=== PATIENT | male | born 1965 | race Caucasian/White ===

== ENCOUNTER 2019-11-01 13:36 | Emergency (ER) | payer BC ==
[2019-11-01] MEDS ORDERED: Diphtheria,Pertussis(Acell),Tetanus Vaccine 0.5 ML Syringe IM ONE (14:46)
[2019-11-01] MEDS ORDERED: Lidocaine 1% with EPINEPHrine 1:100,000 20 ML MDV INJECT ONE (14:47)
--- NOTE | 2019-11-01 15:27 | EDM.PDOC ---
ED HPI GENERAL MEDICAL PROBLEM - General Chief Complaint: Head Injury Stated Complaint: LT YAZIDI LAC Time Seen by Provider: 11/01/19 14:44 Source of Information: Reports: Patient History Limitations: Reports: No Limitations - History of Present Illness INITIAL COMMENTS - FREE TEXT/NARRATIVE: The patient presents with a laceration to the left side of his head. He was working with his bulls and they hit a gate and it hit him in the head. He had no LOC. He has a 1.5cm laceration to the left lateral eyebrow. He is unsure when his last tetanus was. Onset: Sudden Location: Reports: Head Quality: Reports: Sharp Severity: Mild Improves with: Reports: None Worsens with: Reports: None Associated Symptoms: Reports: No Other Symptoms - Related Data Allergies Allergy/AdvReac Type Severity Reaction Status Date / Time No Known Allergies Allergy Verified 11/01/19 14:45 Home Meds: Home Meds . [No Known Home Meds] 11/01/19 [History] Past Medical History Musculoskeletal History: Reports: Fracture - Past Surgical History Musculoskeletal Surgical History: Reports: ORIF Social & Family History - Tobacco Use Smoking Status *Q: Never Smoker - Recreational Drug Use Recreational Drug Use: No ED ROS GENERAL - Review of Systems Review Of Systems: See Below Constitutional: Reports: No Symptoms HEENT: Reports: Other (1.5 laceration to his head) Respiratory: Reports: No Symptoms Cardiovascular: Reports: No Symptoms Endocrine: Reports: No Symptoms GI/Abdominal: Reports: No Symptoms : Reports: No Symptoms Musculoskeletal: Reports: No Symptoms ED EXAM, HEAD INJURY - Physical Exam Exam: See Below Exam Limited By: No Limitations General Appearance: Alert, No Apparent Distress Head: Other (1.5 cm laceration to the left lateral eyebrow) Eyes: Bilateral Eye: EOMI Ears: Normal External Exam Nose: Normal Inspection Respiratory: No Respiratory Distress ED LACERATION/WOUND & CINDY PROC - Laceration/Wound Repair Left Head Lac/wound length in cm: 1.5 Appearance: Subcutaneous, Linear Anesthetic Type: Local Local Anesthesia - Lidocaine (Xylocaine): 1% with EPI Skin Prep: Saline Exploration/Debridement/Repair: Wound Explored, In a Bloodless Field, Explored to Base Closed with: Sutures Suture Size: 4-0 # of Sutures: 3 Suture Type: Nylon, Interrupted, Simple Tetanus Status Addressed: Yes Complications: No Course - Vital Signs Last Recorded V/S: Last Vital Signs Temp 97.7 F 11/01/19 14:42 Pulse 83 11/01/19 14:42 Resp 16 11/01/19 14:42 BP 145/93 H 11/01/19 14:42 Pulse Ox 95 11/01/19 14:42 - Orders/Labs/Meds Orders: Active Orders 24 hr Category Date Time Status Vaccines to be Administered [RC] PER UNIT ROUTINE Care 11/01/19 14:47 Active Meds: Medications Discontinued Medications Generic Name Dose Route Start Last Admin Trade Name Kim PRN Reason Stop Dose Admin Diphtheria/Tetanus/Acell Pertussis 0.5 ml 11/01/19 14:46 11/01/19 15:08 Adacel IM 11/01/19 14:47 0.5 ml .ONCE ONE Administration Lidocaine/Epinephrine 20 ml 11/01/19 14:47 Xylocaine 1% With Epinephrine 1:100,000 INJECT 11/01/19 14:48 ONETIME ONE - Re-Assessments/Exams Free Text/Narrative Re-Assessment/Exam: 11/01/19 15:23 I updated his tetanus and sutured the laceration. Departure - Departure Time of Disposition: 15:25 Disposition: Home, Self-Care 01 Condition: Good Clinical Impression: Laceration of head Qualifiers: Encounter type: initial encounter Location of open wound of head: other part of head Foreign body presence: without foreign body Qualified Code(s): S01.81XA - Laceration without foreign body of other part of head, initial encounter - Discharge Information *PRESCRIPTION DRUG MONITORING PROGRAM REVIEWED*: Not Applicable *COPY OF PRESCRIPTION DRUG MONITORING REPORT IN PATIENT RODNEY: Not Applicable Referrals: PCP,None [Primary Care Provider] - Additional Instructions: Clean the wound with warm soapy water 2 times per day and apply antibiotic ointment after. Have the sutures removed in 1 week. Look for any signs of infection such as redness, swelling, pain or discharge. If you see these signs , please return or see your doctor you may need oral antibiotics. Sepsis Event Note - Evaluation Sepsis Screening Result: No Definite Risk - Focused Exam Vital Signs: Vital Signs Temp Pulse Resp BP Pulse Ox 11/01/19 14:42 97.7 F 83 16 145/93 H 95 Date Exam was Performed: 11/01/19 Time Exam was Performed: 15:20 - My Orders Last 24 Hours: My Active Orders 11/01/19 14:47 Vaccines to be Administered [RC] PER UNIT ROUTINE - Assessment/Plan Last 24 Hours: My Active Orders 11/01/19 14:47 Vaccines to be Administered [RC] PER UNIT ROUTINE
== END 2019-11-01 15:39 | disposition home or self-care (01) ==
LOC: JD.ED 13:36
DX: S01.112A Laceration without foreign body of left eyelid and periocular area, initial encounter (principal); Z23 Encounter for immunization; W22.8XXA Striking against or struck by other objects, initial encounter
CPT/HCPCS: 12011; 90471; 90715; 99282

== ENCOUNTER 2022-10-14 10:56 | Emergency (ER) | payer BC ==
[2022-10-14] MEDS ORDERED: Ketorolac 60 MG/2 ML SDV IM ONE (11:32)
[2022-10-14] MEDS ORDERED: HYDROmorphone 1 MG/ML Syringe IM ONE (11:32)
== END 2022-10-14 13:15 | disposition home or self-care (01) ==
LOC: JD.ED 10:56
DX: M16.11 Unilateral primary osteoarthritis, right hip (principal)
CPT/HCPCS: 73502; 96372; 99283; J1170; J1885